=== PATIENT | male | born 1940 | race Caucasian/White ===

== ENCOUNTER 2022-10-15 09:44 | Emergency (ER) | payer OTHER ==
[~2022-10-15] VITALS: Ht 165.1 cm; Wt 63.5 kg
[2022-10-15 09:45] VITALS: BP_SYST 117
--- NOTE | 2022-10-15 09:45 | NUR ---
Patient triaged and placed in waiting room. VSS and patient appears in no acute distress at this time. Accompanied by SON, awaiting available bed, and MD notified of need for MSE.
--- NOTE | 2022-10-15 09:50 | NUR ---
PT BIB SON FROM HOME C/O DIARRHEA, ABD PAIN AND NAUSEA X 10 DAYS. WORSE AFTER EATING. CAME BACK FROM [place] LAST NIGHT WHERE HE HAS BEEN STAYING RECENTLY. DENIES VOMITTING. PT IS AMBULATORY, AAOX4, VSS
--- NOTE | 2022-10-15 10:40 | NUR ---
ER DR. ORNELAS EXAMINING PT
[2022-10-15 11:09] LABS: BASOPHILS % (AUTO) 0.6 % (0.0-2.0); EOSINOPHILS # (AUTO) 0.1 K/uL (0.0-0.4); EOSINOPHILS % (AUTO) 1.3 % (0.0-4.0); HEMATOCRIT 33.4 % (36-54); HEMOGLOBIN 10.6 g/dL (14.0-18.0); LYMPHOCYTES # (AUTO) 1.6 K/uL (1.0-5.5); LYMPHOCYTES % (AUTO) 19.5 % (20.5-51.5); MEAN CORPUSCULAR HEMOGLOBIN 24 pg (27-31); MEAN CORPUSCULAR HGB CONC 32 % (32-36); MEAN CORPUSCULAR VOLUME 76 fL (79.0-98.0); MONOCYTES # (AUTO) 0.6 K/uL (0.0-1.0); MONOCYTES % (AUTO) 7.3 % (1.7-9.3); NEUTROPHILS # (AUTO) 5.7 K/uL (1.8-7.7); NEUTROPHILS % (AUTO) 71.3 % (40.0-70.0); PLATELET COUNT (AUTO) 339 K/uL (130-430); RED BLOOD CELL COUNT(AUTO) 4.39 MIL/uL (4.2-6.2); RED CELL DISTRIBUTION WIDTH 19.1 % (9.0-15.0)
[2022-10-15 11:21] LABS: ANION GAP 8 (5-15); CALCIUM 8.9 mg/dL (8.4-11.0); CHLORIDE 104 mmol/L (98-107); CREATININE 2.49 mg/dL (0.55-1.30); GLUCOSE 108 mg/dL (70-99); UREA NITROGEN, BLOOD 41 mg/dL (8-21)
[2022-10-15 11:31] LABS: ALANINE AMINOTRANSFERASE 28 U/L (12-78); ALBUMIN 3.3 g/dL (3.4-4.8); ASPARTATE AMINOTRANSFERASE 17 U/L (10-37); LIPASE 406 U/L (73-393); TOTAL BILIRUBIN 0.8 mg/dL (0.0-1.0)
[2022-10-15] MEDS ORDERED: LOPE2CAP PO (13:46)
[2022-10-15] MEDS ORDERED: CIPR500T5 PO (13:46)
[2022-10-15 14:00] VITALS: BP_SYST 117
--- NOTE | 2022-10-15 14:00 | NUR ---
Patient given written and verbal discharge instructions and verbalizes understanding. ER MD discussed with patient the results and treatment provided. Patient in stable condition. ID arm band removed. Rx of CIPRO AND IMODIUM given. Patient educated on pain management and to follow up with PMD. Pain Scale 0/10. Opportunity for questions provided and answered. Medication side effect fact sheet provided.
== END 2022-10-15 14:00 | disposition home or self-care (01) ==
LOC: SED 09:44
DX: R19.7 Diarrhea, unspecified (principal); R10.32 Left lower quadrant pain; I10 Essential (primary) hypertension; Z79.899 Other long term (current) drug therapy
CPT/HCPCS: 36415; 80053; 83690; 85025; 99283

== ENCOUNTER 2023-05-01 07:07 | Emergency (ER) | payer OTHER ==
[~2023-05-01] VITALS: Ht 160 cm; Wt 68.0 kg
[~2023-05-01 07:07] MED LIST: ALBU8.5H5 INH; ALLO100T PO; ATOR40TA68 PO; CIPR500T5 PO; CLOP75TA32 PO; HYD10 PO; HYDR12.55 PO; LOPE2CAP PO; METO25TA3 PO; OLME40TA70 PO; SODI10PO PO
[2023-05-01 07:23] VITALS: BP_SYST 139; PULSE 89; RESP 18; TEMP 98; O2SAT 97
[2023-05-01] MEDS ORDERED: NACL 0.9% 1,000 ML IV ONE (07:45)
[2023-05-01 08:10] LABS: BILIRUBIN,URINE NEGATIVE (NEGATIVE); BLOOD, URINE 1+ (NEGATIVE); COLOR,URINE YELLOW (YELLOW); GLUCOSE,URINE NEGATIVE (NEGATIVE); NITRITE, URINE NEGATIVE (NEGATIVE); PH,URINE 6.5 (5.0-8.0); PROTEIN URINE NEGATIVE (NEGATIVE); UROBILINOGEN,URINE 0.2 (0.2-1.0)
[2023-05-01 08:11] LABS: CLARITY/URINE SLIGHTLY HAZY (CLEAR); KETONES,URINE NEGATIVE (NEGATIVE); LEUKOCYTE ESTERASE ,URINE NEGATIVE (NEGATIVE)
[2023-05-01 08:13] LABS: BASOPHILS % (AUTO) 0.4 % (0.0-2.0); EOSINOPHILS % (AUTO) 0.2 % (0.0-4.0); HEMATOCRIT 25.2 % (36-54); HEMOGLOBIN 7.8 g/dL (14.0-18.0); LYMPHOCYTES # (AUTO) 1.1 K/uL (1.0-5.5); LYMPHOCYTES % (AUTO) 9.6 % (20.5-51.5); MEAN CORPUSCULAR HEMOGLOBIN 24 pg (27-31); MEAN CORPUSCULAR HGB CONC 31 % (32-36); MEAN CORPUSCULAR VOLUME 76 fL (79.0-98.0); MONOCYTES # (AUTO) 1.2 K/uL (0.0-1.0); MONOCYTES % (AUTO) 10.4 % (1.7-9.3); NEUTROPHILS # (AUTO) 9.2 K/uL (1.8-7.7); NEUTROPHILS % (AUTO) 79.4 % (40.0-70.0); PLATELET COUNT (AUTO) 510 K/uL (130-430); RED BLOOD CELL COUNT(AUTO) 3.33 MIL/uL (4.2-6.2); RED CELL DISTRIBUTION WIDTH 18.6 % (9.0-15.0); WHITE BLOOD COUNT (AUTO) 11.6 K/uL (4.8-10.8)
[2023-05-01 08:33] LABS: ANION GAP 10 (5-15); CALCIUM 8.6 mg/dL (8.4-11.0); CARBON DIOXIDE 27 mmol/L (23-29); CHLORIDE 101 mmol/L (98-107); CREATININE 1.33 mg/dL (0.55-1.30); GLUCOSE 90 mg/dL (74-106); POTASSIUM 4.4 mmol/L (3.5-5.1); SODIUM SERUM 138 mmol/L (136-145); UREA NITROGEN, BLOOD 33 mg/dL (8-21)
[2023-05-01 08:34] LABS: BARBITURATE, URINE NEGATIVE (NEG <=200); BENZODIAZEPINE, URINE NEGATIVE (NEG <=150); CANNABINOID, URINE NEGATIVE (NEG <=50); COCAINE, URINE NEGATIVE (NEG <=150); METHAMPHETAMINES SCREEN,URINE NEGATIVE (NEG <=500); OPIATE, URINE NEGATIVE (NEG <=100); PHENCYCLIDINE SCREEN,URINE NEGATIVE (NEG <=25); UR TRICYCLIC ANTIDEPRESSANTS NEGATIVE (NEG <=300); URINE AMPHETAMINE NEGATIVE (NEG <=500); URINE METHADONE NEGATIVE (NEG <=200); URINE OXYCODONE SCREEN NEGATIVE (NEG <=100); URINE PROPOXYPHENE SCREEN NEGATIVE (NEG <=300)
[2023-05-01 08:35] LABS: BACTERIA,URINE RARE /HPF (None Seen); RBC,URINE 0-3 /HPF (0-3); WBC,URINE NONE SEEN /HPF (0-3)
[2023-05-01 08:40] LABS: ALANINE AMINOTRANSFERASE 24 U/L (12-78); ALBUMIN 2.6 g/dL (3.4-4.8); ASPARTATE AMINOTRANSFERASE 27 U/L (10-37); TOTAL PROTEIN, SERUM 6.6 g/dL (6.4-8.3)
[2023-05-01 10:57] VITALS: BP_SYST 130; PULSE 89; RESP 18; TEMP 98; O2SAT 97
== END 2023-05-01 11:00 | disposition home or self-care (01) ==
LOC: SED 07:07
DX: R33.9 Retention of urine, unspecified (principal); N28.9 Disorder of kidney and ureter, unspecified; R10.30 Lower abdominal pain, unspecified; J44.9 Chronic obstructive pulmonary disease, unspecified; I10 Essential (primary) hypertension; Z85.9 Personal history of malignant neoplasm, unspecified; Z79.899 Other long term (current) drug therapy
CPT/HCPCS: 36415; 71045; 80053; 80307; 81000; 85025; 93005; 99285

== ENCOUNTER 2023-09-12 16:55 | Inpatient (IN) | payer OTHER ==
[~2023-09-12] VITALS: Ht 165.1 cm; Wt 53.5 kg
[~2023-09-12 16:55] MED LIST changes: +PHEN-726 PO
[2023-09-12 17:03] VITALS: BP_SYST 137; PULSE 91; RESP 17; TEMP 99.1; O2SAT 81
[2023-09-12] MEDS ORDERED: ALBUTEROL SULFATE 0.083% 2.5 MG/3 ML VIAL.NEB INH ONE (17:30)
[2023-09-12] MEDS ORDERED: IPRATROPIUM BROM 0.5 MG/2.5 ML VIAL.NEB (ATROVENT) INH ONE (17:30)
[2023-09-12 17:52] LABS: EOSINOPHILS # (AUTO) 0.2 K/uL (0.0-0.4); HEMOGLOBIN 11.2 g/dL (14.0-18.0); LYMPHOCYTES # (AUTO) 1.3 K/uL (1.0-5.5); MEAN CORPUSCULAR HGB CONC 33 % (32-36); MONOCYTES # (AUTO) 0.8 K/uL (0.0-1.0)
[2023-09-12 17:56] VITALS: O2SAT 90
[2023-09-12 18:01] LABS: BASOPHILS % (AUTO) 0.6 % (0.0-2.0); EOSINOPHILS % (AUTO) 2.5 % (0.0-4.0); HEMATOCRIT 33.7 % (36-54); LYMPHOCYTES % (AUTO) 17.1 % (20.5-51.5); MEAN CORPUSCULAR HEMOGLOBIN 26 pg (27-31); MEAN CORPUSCULAR VOLUME 78 fL (79.0-98.0); MONOCYTES % (AUTO) 9.9 % (1.7-9.3); NEUTROPHILS # (AUTO) 5.3 K/uL (1.8-7.7); NEUTROPHILS % (AUTO) 69.9 % (40.0-70.0); PLATELET COUNT (AUTO) 345 K/uL (130-430); RED BLOOD CELL COUNT(AUTO) 4.31 MIL/uL (4.2-6.2); RED CELL DISTRIBUTION WIDTH 20.4 % (9.0-15.0); WHITE BLOOD COUNT (AUTO) 7.6 K/uL (4.8-10.8)
[2023-09-12] MEDS ORDERED: iohexoL 350 mgI/mL, 100 ML INFUS..BTL IV ONE (18:05)
[2023-09-12 18:13] LABS: ANION GAP 7 (5-15); CALCIUM 8.4 mg/dL (8.4-11.0); CARBON DIOXIDE 27 mmol/L (23-29); CHLORIDE 104 mmol/L (98-107); CREATININE 1.16 mg/dL (0.55-1.30); GLUCOSE 99 mg/dL (74-106); POTASSIUM 4.8 mmol/L (3.5-5.1); SODIUM SERUM 138 mmol/L (136-145); UREA NITROGEN, BLOOD 25 mg/dL (8-21)
[2023-09-12] MEDS ORDERED: FINA-37 PO (21:10)
[2023-09-12] MEDS ORDERED: MIRT-147 PO (21:10)
[2023-09-12] MEDS ORDERED: TAMS-11 PO (21:10)
[2023-09-13] MEDS: AZITHROMYCIN 500 MG in NS 250 ML IV SCH (11:00)
[2023-09-13] MEDS ORDERED: METHYLPREDNISOLONE SOD SUCC 40 MG/ML VIAL IVP ONE (11:15)
[2023-09-13] MEDS: cefTRIAXone 1 GM in D5W 50 ML IV SCH (12:22)
[2023-09-13] MEDS ORDERED: ALBUTEROL MDI INHALATION 8 GM INH INH PRN (12:45)
[2023-09-13] MEDS ORDERED: TAMSULOSIN HCL 0.4 MG CAP PO ONE (13:30)
[2023-09-13] MEDS ORDERED: FINASTERIDE 5 MG TABLET (PROSCAR) PO ONE (13:30)
[2023-09-13] MEDS ORDERED: ALLOPURINOL 100 MG TABLET (ZYLOPRIM) PO ONE (13:30)
[2023-09-13] MEDS ORDERED: ALBUTEROL SULFATE 0.083% 2.5 MG/3 ML VIAL.NEB INH PRN (14:00)
[2023-09-13 14:12] VITALS: PULSE 70; O2SAT 96
[2023-09-13] MEDS ORDERED: METHYLPREDNISOLONE SOD SUCC 40 MG/ML VIAL ONE (23:11)
[2023-09-13] MEDS: METHYLPREDNISOLONE SOD SUCC 40 MG/ML VIAL IVP SCH (23:12)
[2023-09-13] MEDS ORDERED: ATORVASTATIN 20 MG TABLET ONE (23:15)
[2023-09-13] MEDS: ATORVASTATIN 20 MG TABLET PO SCH (23:17)
[2023-09-13] MEDS ORDERED: MIRTAZAPINE 15 MG TABLET ONE (23:37)
[2023-09-13] MEDS: MIRTAZAPINE 15 MG TABLET PO SCH (23:39)
[2023-09-14] VITALS (7 sets, daily range): BP systolic 124–148; PULSE 79–98; RESP 12–17; TEMP 97.6–98.1; O2SAT 92–93
[2023-09-14 08:03] LABS: BASOPHILS % (AUTO) 0.1 % (0.0-2.0); HEMOGLOBIN 11.9 g/dL (14.0-18.0); LYMPHOCYTES % (AUTO) 10.3 % (20.5-51.5); MEAN CORPUSCULAR HEMOGLOBIN 26 pg (27-31); MEAN CORPUSCULAR HGB CONC 33 % (32-36); MEAN CORPUSCULAR VOLUME 79 fL (79.0-98.0); MONOCYTES # (AUTO) 0.2 K/uL (0.0-1.0); MONOCYTES % (AUTO) 1.9 % (1.7-9.3); NEUTROPHILS # (AUTO) 8.2 K/uL (1.8-7.7); NEUTROPHILS % (AUTO) 87.7 % (40.0-70.0); PLATELET COUNT (AUTO) 338 K/uL (130-430); RED BLOOD CELL COUNT(AUTO) 4.55 MIL/uL (4.2-6.2); RED CELL DISTRIBUTION WIDTH 19.9 % (9.0-15.0); WHITE BLOOD COUNT (AUTO) 9.3 K/uL (4.8-10.8)
[2023-09-14 08:10] LABS: ANION GAP 8 (5-15); CALCIUM 8.6 mg/dL (8.4-11.0); CARBON DIOXIDE 26 mmol/L (23-29); CHLORIDE 105 mmol/L (98-107); CREATININE 1.13 mg/dL (0.55-1.30); GLUCOSE 158 mg/dL (74-106); POTASSIUM 5.2 mmol/L (3.5-5.1); SODIUM SERUM 139 mmol/L (136-145); UREA NITROGEN, BLOOD 27 mg/dL (8-21)
[2023-09-14] MEDS ORDERED: NON-FORMULARY MEDICATION (Hydrochlorothiazide 1 TAB) PO SCH (09:00)
[2023-09-14] MEDS: ALLOPURINOL 100 MG TABLET (ZYLOPRIM) PO SCH (09:07)
[2023-09-14] MEDS: TAMSULOSIN HCL 0.4 MG CAP PO SCH (09:07)
[2023-09-14] MEDS: FINASTERIDE 5 MG TABLET (PROSCAR) PO SCH (09:07)
[2023-09-14] MEDS: METHYLPREDNISOLONE SOD SUCC 40 MG/ML VIAL IVP SCH ×2 (09:31→21:00)
[2023-09-14] MEDS: cefTRIAXone 1 GM in D5W 50 ML IV SCH (09:32)
[2023-09-14] MEDS: AZITHROMYCIN 500 MG in NS 250 ML IV SCH (09:32)
[2023-09-14] MEDS ORDERED: HYDROCHLOROTHIAZIDE 12.5 MG CAPSULE (HCTZ) PO ONE (09:45)
[2023-09-14] MEDS ORDERED: SODIUM POLYSTYRENE SULFONATE 15 GM/60 ML UDBTL PO ONE (11:30)
[2023-09-14] MEDS: ATORVASTATIN 20 MG TABLET PO SCH (21:00)
[2023-09-14] MEDS: MIRTAZAPINE 15 MG TABLET PO SCH (21:01)
[2023-09-15 06:26] LABS: ANION GAP 6 (5-15); CALCIUM 7.9 mg/dL (8.4-11.0); CARBON DIOXIDE 26 mmol/L (23-29); CHLORIDE 104 mmol/L (98-107); CREATININE 1.11 mg/dL (0.55-1.30); GLUCOSE 149 mg/dL (74-106); POTASSIUM 4.3 mmol/L (3.5-5.1); SODIUM SERUM 136 mmol/L (136-145); UREA NITROGEN, BLOOD 30 mg/dL (8-21)
[2023-09-15 06:34] LABS: BASOPHILS % (AUTO) 0.1 % (0.0-2.0); HEMATOCRIT 30.8 % (36-54); HEMOGLOBIN 10.3 g/dL (14.0-18.0); LYMPHOCYTES # (AUTO) 1.1 K/uL (1.0-5.5); LYMPHOCYTES % (AUTO) 7.9 % (20.5-51.5); MEAN CORPUSCULAR HEMOGLOBIN 26 pg (27-31); MEAN CORPUSCULAR HGB CONC 33 % (32-36); MEAN CORPUSCULAR VOLUME 79 fL (79.0-98.0); MONOCYTES # (AUTO) 0.6 K/uL (0.0-1.0); MONOCYTES % (AUTO) 3.9 % (1.7-9.3); NEUTROPHILS # (AUTO) 12.6 K/uL (1.8-7.7); NEUTROPHILS % (AUTO) 88.1 % (40.0-70.0); PLATELET COUNT (AUTO) 333 K/uL (130-430); RED BLOOD CELL COUNT(AUTO) 3.92 MIL/uL (4.2-6.2); RED CELL DISTRIBUTION WIDTH 20.1 % (9.0-15.0); WHITE BLOOD COUNT (AUTO) 14.3 K/uL (4.8-10.8)
[2023-09-15 08:00] VITALS: BP_SYST 135; PULSE 96; RESP 19; TEMP 96.9; O2SAT 94
[2023-09-15] MEDS: HYDROCHLOROTHIAZIDE 12.5 MG CAPSULE (HCTZ) PO SCH (09:26)
[2023-09-15] MEDS: FINASTERIDE 5 MG TABLET (PROSCAR) PO SCH (09:26)
[2023-09-15] MEDS: ALLOPURINOL 100 MG TABLET (ZYLOPRIM) PO SCH (09:26)
[2023-09-15] MEDS: TAMSULOSIN HCL 0.4 MG CAP PO SCH (09:26)
[2023-09-15] MEDS: METHYLPREDNISOLONE SOD SUCC 40 MG/ML VIAL IVP SCH ×2 (11:48→21:22)
[2023-09-15] MEDS: cefTRIAXone 1 GM in D5W 50 ML IV SCH (11:54)
[2023-09-15] MEDS: AZITHROMYCIN 500 MG in NS 250 ML IV SCH (11:54)
[2023-09-15 12:03] VITALS: BP_SYST 127; PULSE 87; RESP 18; TEMP 97.2; O2SAT 95
[2023-09-15 16:00] VITALS: BP_SYST 132; PULSE 85; RESP 18; TEMP 98.2; O2SAT 97
[2023-09-15 20:00] VITALS: BP_SYST 130; PULSE 93; RESP 18; TEMP 98.3; O2SAT 97; O2SAT 98
[2023-09-15] MEDS: ATORVASTATIN 20 MG TABLET PO SCH (21:22)
[2023-09-15] MEDS: MIRTAZAPINE 15 MG TABLET PO SCH (21:22)
[2023-09-16] VITALS (8 sets, daily range): BP systolic 126–145; PULSE 57–91; RESP 16–20; TEMP 97.3–98; O2SAT 93–98
[2023-09-16 05:04] LABS: ERYTHROCYTE SEDIMENTATION RATE 67 MM/HR (0-15)
[2023-09-16 05:14] LABS: HEMATOCRIT 30.8 % (36-54); HEMOGLOBIN 10.3 g/dL (14.0-18.0); LYMPHOCYTES # (AUTO) 0.9 K/uL (1.0-5.5); MEAN CORPUSCULAR HEMOGLOBIN 26 pg (27-31); MEAN CORPUSCULAR HGB CONC 33 % (32-36); MEAN CORPUSCULAR VOLUME 79 fL (79.0-98.0); MONOCYTES # (AUTO) 0.2 K/uL (0.0-1.0); MONOCYTES % (AUTO) 1.7 % (1.7-9.3); NEUTROPHILS # (AUTO) 8.8 K/uL (1.8-7.7); NEUTROPHILS % (AUTO) 89.3 % (40.0-70.0); PLATELET COUNT (AUTO) 311 K/uL (130-430); RED BLOOD CELL COUNT(AUTO) 3.93 MIL/uL (4.2-6.2); RED CELL DISTRIBUTION WIDTH 19.5 % (9.0-15.0); WHITE BLOOD COUNT (AUTO) 9.9 K/uL (4.8-10.8)
[2023-09-16 05:47] LABS: ALANINE AMINOTRANSFERASE 52 U/L (12-78); ALBUMIN 2.3 g/dL (3.4-4.8); ANION GAP 10 (5-15); ASPARTATE AMINOTRANSFERASE 51 U/L (10-37); CALCIUM 8.5 mg/dL (8.4-11.0); CARBON DIOXIDE 24 mmol/L (23-29); CHLORIDE 104 mmol/L (98-107); CREATININE 1.24 mg/dL (0.55-1.30); GLUCOSE 215 mg/dL (74-106); POTASSIUM 4.2 mmol/L (3.5-5.1); SODIUM SERUM 138 mmol/L (136-145); TOTAL BILIRUBIN 0.3 mg/dL (0.0-1.0); TOTAL PROTEIN, SERUM 6.6 g/dL (6.4-8.3); UREA NITROGEN, BLOOD 35 mg/dL (8-21)
[2023-09-16] MEDS: TAMSULOSIN HCL 0.4 MG CAP PO SCH (08:56)
[2023-09-16] MEDS: FINASTERIDE 5 MG TABLET (PROSCAR) PO SCH (08:56)
[2023-09-16] MEDS: ALLOPURINOL 100 MG TABLET (ZYLOPRIM) PO SCH (08:57)
[2023-09-16] MEDS: METHYLPREDNISOLONE SOD SUCC 40 MG/ML VIAL IVP SCH ×2 (08:57→21:44)
[2023-09-16] MEDS: HYDROCHLOROTHIAZIDE 12.5 MG CAPSULE (HCTZ) PO SCH (08:57)
[2023-09-16] MEDS: cefTRIAXone 1 GM in D5W 50 ML IV SCH (08:58)
[2023-09-16] MEDS: AZITHROMYCIN 500 MG in NS 250 ML IV SCH (09:44)
[2023-09-16] MEDS: ATORVASTATIN 20 MG TABLET PO SCH (21:43)
[2023-09-16] MEDS: MIRTAZAPINE 15 MG TABLET PO SCH (21:43)
[2023-09-17 00:40] VITALS: BP_SYST 138; PULSE 88; RESP 16; TEMP 98; O2SAT 98
[2023-09-17 08:00] VITALS: BP_SYST 144; PULSE 70; RESP 17; TEMP 98.3; O2SAT 95
[2023-09-17] MEDS: cefTRIAXone 1 GM in D5W 50 ML IV SCH (08:39)
[2023-09-17] MEDS: METHYLPREDNISOLONE SOD SUCC 40 MG/ML VIAL IVP SCH ×2 (08:39→21:28)
[2023-09-17] MEDS: FINASTERIDE 5 MG TABLET (PROSCAR) PO SCH (08:40)
[2023-09-17] MEDS: HYDROCHLOROTHIAZIDE 12.5 MG CAPSULE (HCTZ) PO SCH (08:40)
[2023-09-17] MEDS: TAMSULOSIN HCL 0.4 MG CAP PO SCH (08:40)
[2023-09-17] MEDS: ALLOPURINOL 100 MG TABLET (ZYLOPRIM) PO SCH (08:40)
[2023-09-17] MEDS: AZITHROMYCIN 500 MG in NS 250 ML IV SCH (09:43)
[2023-09-17 11:03] VITALS: BP_SYST 135; PULSE 70; RESP 16; TEMP 97.6; O2SAT 99
[2023-09-17 17:14] VITALS: BP_SYST 137; PULSE 70; RESP 16; TEMP 97.6; O2SAT 99
[2023-09-17 20:45] VITALS: O2SAT 94
[2023-09-17 21:00] VITALS: BP_SYST 146; PULSE 75; RESP 20; O2SAT 95
[2023-09-17] MEDS: ATORVASTATIN 20 MG TABLET PO SCH (21:26)
[2023-09-17] MEDS: MIRTAZAPINE 15 MG TABLET PO SCH (21:27)
[2023-09-18 01:11] VITALS: BP_SYST 130; PULSE 66; RESP 17; TEMP 96.8; O2SAT 98
[2023-09-18 04:55] LABS: BASOPHILS % (AUTO) 0.1 % (0.0-2.0); EOSINOPHILS % (AUTO) 0.1 % (0.0-4.0); HEMATOCRIT 33.4 % (36-54); HEMOGLOBIN 11.1 g/dL (14.0-18.0); LYMPHOCYTES % (AUTO) 10.1 % (20.5-51.5); MEAN CORPUSCULAR HEMOGLOBIN 26 pg (27-31); MEAN CORPUSCULAR HGB CONC 33 % (32-36); MEAN CORPUSCULAR VOLUME 79 fL (79.0-98.0); MONOCYTES # (AUTO) 0.2 K/uL (0.0-1.0); MONOCYTES % (AUTO) 2.3 % (1.7-9.3); NEUTROPHILS # (AUTO) 9.1 K/uL (1.8-7.7); NEUTROPHILS % (AUTO) 87.4 % (40.0-70.0); PLATELET COUNT (AUTO) 313 K/uL (130-430); RED BLOOD CELL COUNT(AUTO) 4.26 MIL/uL (4.2-6.2); RED CELL DISTRIBUTION WIDTH 19.4 % (9.0-15.0)
[2023-09-18 05:06] LABS: ALANINE AMINOTRANSFERASE 74 U/L (12-78); ALBUMIN 2.4 g/dL (3.4-4.8); ANION GAP 7 (5-15); ASPARTATE AMINOTRANSFERASE 63 U/L (10-37); CALCIUM 8.7 mg/dL (8.4-11.0); CARBON DIOXIDE 30 mmol/L (23-29); CHLORIDE 102 mmol/L (98-107); CREATININE 1.34 mg/dL (0.55-1.30); GLUCOSE 301 mg/dL (74-106); POTASSIUM 5.6 mmol/L (3.5-5.1); SODIUM SERUM 139 mmol/L (136-145); TOTAL BILIRUBIN 0.3 mg/dL (0.0-1.0); TOTAL PROTEIN, SERUM 6.7 g/dL (6.4-8.3); UREA NITROGEN, BLOOD 35 mg/dL (8-21)
[2023-09-18 08:00] VITALS: BP_SYST 148; PULSE 72; RESP 17; TEMP 98.7; O2SAT 98
[2023-09-18 08:23] LABS: WHITE BLOOD COUNT (AUTO) 10.4 K/uL (4.8-10.8)
[2023-09-18] MEDS: HYDROCHLOROTHIAZIDE 12.5 MG CAPSULE (HCTZ) PO SCH (09:56)
[2023-09-18] MEDS: METHYLPREDNISOLONE SOD SUCC 40 MG/ML VIAL IVP SCH (09:56)
[2023-09-18] MEDS: FINASTERIDE 5 MG TABLET (PROSCAR) PO SCH (09:57)
[2023-09-18] MEDS: ALLOPURINOL 100 MG TABLET (ZYLOPRIM) PO SCH (09:57)
[2023-09-18] MEDS: TAMSULOSIN HCL 0.4 MG CAP PO SCH (09:57)
[2023-09-18] MEDS ORDERED: NACL 0.9% 1,000 ML IV ONE (10:00)
[2023-09-18] MEDS: cefTRIAXone 1 GM in D5W 50 ML IV SCH (10:03)
[2023-09-18] MEDS: AZITHROMYCIN 500 MG in NS 250 ML IV SCH (10:54)
[2023-09-18 12:00] VITALS: BP_SYST 149; PULSE 68; RESP 18; TEMP 98; O2SAT 100
[2023-09-18 16:00] VITALS: BP_SYST 141; PULSE 91; RESP 18; TEMP 97.7; O2SAT 97
[2023-09-18 17:35] LABS: ANION GAP 10 (5-15); CALCIUM 7.4 mg/dL (8.4-11.0); CARBON DIOXIDE 24 mmol/L (23-29); CHLORIDE 99 mmol/L (98-107); CREATININE 1.15 mg/dL (0.55-1.30); GLUCOSE 276 mg/dL (74-106); POTASSIUM 4.3 mmol/L (3.5-5.1); SODIUM SERUM 133 mmol/L (136-145); UREA NITROGEN, BLOOD 35 mg/dL (8-21)
[2023-09-18] MEDS ORDERED: METH-776 PO (20:18)
[2023-09-18 20:30] VITALS: BP_SYST 136; PULSE 79; RESP 20; TEMP 98.3; O2SAT 95
[2023-09-18] MEDS: ATORVASTATIN 20 MG TABLET PO SCH (21:23)
[2023-09-18] MEDS: MIRTAZAPINE 15 MG TABLET PO SCH (21:23)
[2023-09-19] VITALS: BP_SYST 131; PULSE 85; RESP 20; TEMP 97.3; O2SAT 95
[2023-09-19 05:46] LABS: BASOPHILS % (AUTO) 0.1 % (0.0-2.0); EOSINOPHILS % (AUTO) 0.1 % (0.0-4.0); HEMATOCRIT 31.1 % (36-54); HEMOGLOBIN 10.2 g/dL (14.0-18.0); LYMPHOCYTES # (AUTO) 1.3 K/uL (1.0-5.5); LYMPHOCYTES % (AUTO) 11.4 % (20.5-51.5); MEAN CORPUSCULAR HEMOGLOBIN 26 pg (27-31); MEAN CORPUSCULAR HGB CONC 33 % (32-36); MEAN CORPUSCULAR VOLUME 78 fL (79.0-98.0); MONOCYTES # (AUTO) 0.9 K/uL (0.0-1.0); MONOCYTES % (AUTO) 8.5 % (1.7-9.3); NEUTROPHILS # (AUTO) 8.8 K/uL (1.8-7.7); NEUTROPHILS % (AUTO) 79.9 % (40.0-70.0); PLATELET COUNT (AUTO) 287 K/uL (130-430); RED BLOOD CELL COUNT(AUTO) 3.99 MIL/uL (4.2-6.2)
[2023-09-19 06:15] LABS: ALANINE AMINOTRANSFERASE 68 U/L (12-78); ALBUMIN 2.3 g/dL (3.4-4.8); ANION GAP 9 (5-15); ASPARTATE AMINOTRANSFERASE 48 U/L (10-37); CARBON DIOXIDE 26 mmol/L (23-29); CHLORIDE 102 mmol/L (98-107); GLUCOSE 293 mg/dL (74-106); POTASSIUM 4.4 mmol/L (3.5-5.1); SODIUM SERUM 137 mmol/L (136-145); TOTAL BILIRUBIN 0.3 mg/dL (0.0-1.0); TOTAL PROTEIN, SERUM 6.1 g/dL (6.4-8.3); UREA NITROGEN, BLOOD 31 mg/dL (8-21)
[2023-09-19 08:00] VITALS: BP_SYST 170; PULSE 69; RESP 18; TEMP 98.1; O2SAT 95
[2023-09-19] MEDS ORDERED: METHYLPREDNISOLONE SOD SUCC 40 MG/ML VIAL IVP SCH (09:00)
[2023-09-19] MEDS ORDERED: ENOXAPARIN SODIUM 30 MG/0.3 ML SYRINGE SUBCUT SCH (09:00)
[2023-09-19] MEDS: ALLOPURINOL 100 MG TABLET (ZYLOPRIM) PO SCH (09:20)
[2023-09-19] MEDS: TAMSULOSIN HCL 0.4 MG CAP PO SCH (09:20)
[2023-09-19] MEDS: FINASTERIDE 5 MG TABLET (PROSCAR) PO SCH (09:20)
[2023-09-19] MEDS: cefTRIAXone 1 GM in D5W 50 ML IV SCH (09:21)
[2023-09-19] MEDS: HYDROCHLOROTHIAZIDE 12.5 MG CAPSULE (HCTZ) PO SCH (09:21)
[2023-09-19 10:04] VITALS: BP_SYST 170; PULSE 69; O2SAT 95
[2023-09-19 12:55] VITALS: BP_SYST 157; PULSE 85; RESP 20; TEMP 97.9; O2SAT 95
[2023-09-19 13:51] VITALS: BP_SYST 157; PULSE 85; RESP 20; TEMP 97.9; O2SAT 95
[2023-09-19 16:00] VITALS: BP_SYST 157; PULSE 81; RESP 20; TEMP 98; O2SAT 100
== END 2023-09-19 16:26 | disposition home or self-care (01) | DRG 193 ==
LOC: SED 16:55 → STU 22:30 → SMU 09-17 23:25
PROVIDERS: ADMIT Preventive Medicine Preventive Medicine/Occupational Environmental Medicine; ATTEND Family Medicine
DX: J18.9 Pneumonia, unspecified organism (principal); J96.01 Acute respiratory failure with hypoxia; J44.1 Chronic obstructive pulmonary disease with (acute) exacerbation; N17.9 Acute kidney failure, unspecified; J44.0 Chronic obstructive pulmonary disease with (acute) lower respiratory infection; E78.5 Hyperlipidemia, unspecified; E83.51 Hypocalcemia; E87.5 Hyperkalemia; I25.10 Atherosclerotic heart disease of native coronary artery without angina pectoris; I10 Essential (primary) hypertension; M10.9 Gout, unspecified; D64.9 Anemia, unspecified; R79.89 Other specified abnormal findings of blood chemistry; N40.0 Benign prostatic hyperplasia without lower urinary tract symptoms; Z85.118 Personal history of other malignant neoplasm of bronchus and lung; Z95.5 Presence of coronary angioplasty implant and graft; Z92.21 Personal history of antineoplastic chemotherapy
CPT/HCPCS: 36415; 71045; 71275; 76376; 80048; 80053; 82948; 83880; 84484; 85025; 85651; 87040; 93005; 94640; 94664; 94760; 97110-GP; 97116-GP; 97530-GP; 99291; G0378; J0456; J0696; J1030; J1650; J7050; J7060; Q9967

== ENCOUNTER 2024-01-16 15:11 | Inpatient (IN) | payer OTHER ==
[~2024-01-16] VITALS: Ht 165.1 cm; Wt 49.9 kg
[~2024-01-16 15:11] MED LIST changes: -CIPR500T5 PO; -CLOP75TA32 PO; +FINA-37 PO; -HYD10 PO; -LOPE2CAP PO; +METH-776 PO; -METO25TA3 PO; +MIRT-147 PO; -OLME40TA70 PO; -PHEN-726 PO; -SODI10PO PO; +TAMS-11 PO
[2024-01-16 15:30] VITALS: BP_SYST 134; PULSE 78; RESP 22; TEMP 97.4; O2SAT 88
[2024-01-16] MEDS ORDERED: CLOP75TA32 PO (16:23)
[2024-01-16 16:43] LABS: ALANINE AMINOTRANSFERASE 17 U/L (12-78); ALBUMIN 1.7 g/dL (3.4-4.8); ANION GAP 7 (5-15); ASPARTATE AMINOTRANSFERASE 22 U/L (10-37); BASOPHILS % (AUTO) 0.3 % (0.0-2.0); BILIRUBIN,DIRECT 0.3 mg/dL (0.0-0.3); CALCIUM 8.7 mg/dL (8.4-11.0); CARBON DIOXIDE 29 mmol/L (23-29); CHLORIDE 99 mmol/L (98-107); CREATININE 1.47 mg/dL (0.55-1.30); EOSINOPHILS # (AUTO) 0.1 K/uL (0.0-0.4); EOSINOPHILS % (AUTO) 1.2 % (0.0-4.0); GLUCOSE 108 mg/dL (74-106); LYMPHOCYTES # (AUTO) 0.9 K/uL (1.0-5.5); LYMPHOCYTES % (AUTO) 9.5 % (20.5-51.5); MEAN CORPUSCULAR HEMOGLOBIN 23 pg (27-31); MEAN CORPUSCULAR HGB CONC 32 % (32-36); MEAN CORPUSCULAR VOLUME 71 fL (79.0-98.0); MONOCYTES # (AUTO) 0.6 K/uL (0.0-1.0); MONOCYTES % (AUTO) 7.2 % (1.7-9.3); NEUTROPHILS # (AUTO) 7.3 K/uL (1.8-7.7); NEUTROPHILS % (AUTO) 81.8 % (40.0-70.0); PLATELET COUNT (AUTO) 594 K/uL (130-430); POTASSIUM 5.1 mmol/L (3.5-5.1); RED BLOOD CELL COUNT(AUTO) 2.78 MIL/uL (4.2-6.2); RED CELL DISTRIBUTION WIDTH 19.5 % (9.0-15.0); SODIUM SERUM 135 mmol/L (136-145); TOTAL BILIRUBIN 0.6 mg/dL (0.0-1.0); TOTAL PROTEIN, SERUM 7.6 g/dL (6.4-8.3); UREA NITROGEN, BLOOD 33 mg/dL (8-21)
[2024-01-16 16:49] LABS: HEMATOCRIT 19.6 % (36-54); HEMOGLOBIN 6.3 g/dL (14.0-18.0)
[2024-01-16] MEDS ORDERED: cefTRIAXone 1 GM VIAL ONE (18:57)
[2024-01-16] MEDS: cefTRIAXone 1 GM in D5W 50 ML IV ONE (19:03)
[2024-01-16 20:02] LABS: TOTAL IRON BIND. CAPACITY 260 ug/dL (250-450)
[2024-01-16 20:32] LABS: ANISOCYTOSIS 2+; HYPOCHROMASIA 2+; OVALOCYTES FEW
[2024-01-16 20:47] VITALS: BP_SYST 117; PULSE 120; RESP 20; TEMP 97.9
[2024-01-16 20:50] VITALS: BP_SYST 134; PULSE 102; O2SAT 98
[2024-01-16 21:00] VITALS: O2SAT 98
[2024-01-16] MEDS: IPRATROPIUM/ALBUTEROL SULFATE 3 ML AMPUL.NEB (DUONEB) INH ONE (21:00)
[2024-01-16 22:00] VITALS: O2SAT 98
[2024-01-16] MEDS: PANTOPRAZOLE SODIUM 40 MG/VIAL (PROTONIX) IVP SCH (23:00)
[2024-01-16] MEDS: FUROSEMIDE 20 MG/2 ML VIAL IVP SCH (23:00)
[2024-01-16] MEDS: AZITHROMYCIN 250 MG in NS 250 ML IV ONE (23:02)
[2024-01-16] MEDS: IPRATROPIUM/ALBUTEROL SULFATE 3 ML AMPUL.NEB (DUONEB) INH SCH (23:21)
[2024-01-16 23:24] VITALS: O2SAT 99
[2024-01-17] VITALS (12 sets, daily range): BP systolic 111–129; PULSE 64–99; RESP 17–20; TEMP 97.2–98.7; O2SAT 95–100
[2024-01-17] MEDS: PIPERACILLIN/TAZO 3.375 GM in D5W 50 ML IV SCH (00:15)
[2024-01-17] MEDS: TEMAZEPAM 7.5 MG CAPSULE PO PRN (00:57)
[2024-01-17] MEDS: ACETAMINOPHEN 325 MG TABLET PO PRN (00:58)
[2024-01-17 10:36] LABS: BASOPHILS % (AUTO) 0.4 % (0.0-2.0); EOSINOPHILS # (AUTO) 0.1 K/uL (0.0-0.4); EOSINOPHILS % (AUTO) 1.4 % (0.0-4.0); HEMATOCRIT 32.5 % (36-54); HEMOGLOBIN 10.9 g/dL (14.0-18.0); LYMPHOCYTES # (AUTO) 0.8 K/uL (1.0-5.5); LYMPHOCYTES % (AUTO) 11.1 % (20.5-51.5); MEAN CORPUSCULAR HEMOGLOBIN 26 pg (27-31); MEAN CORPUSCULAR HGB CONC 34 % (32-36); MEAN CORPUSCULAR VOLUME 77 fL (79.0-98.0); MONOCYTES # (AUTO) 0.4 K/uL (0.0-1.0); NEUTROPHILS # (AUTO) 5.9 K/uL (1.8-7.7); NEUTROPHILS % (AUTO) 81.1 % (40.0-70.0); PLATELET COUNT (AUTO) 513 K/uL (130-430); RED BLOOD CELL COUNT(AUTO) 4.21 MIL/uL (4.2-6.2); RED CELL DISTRIBUTION WIDTH 20.9 % (9.0-15.0); WHITE BLOOD COUNT (AUTO) 7.3 K/uL (4.8-10.8)
[2024-01-17 10:50] LABS: ANION GAP 2 (5-15); CALCIUM 8.2 mg/dL (8.4-11.0); CARBON DIOXIDE 28 mmol/L (23-29); CHLORIDE 96 mmol/L (98-107); CREATININE 1.66 mg/dL (0.55-1.30); GLUCOSE 266 mg/dL (74-106); POTASSIUM 4.4 mmol/L (3.5-5.1); SODIUM SERUM 126 mmol/L (136-145); UREA NITROGEN, BLOOD 30 mg/dL (8-21)
[2024-01-17] MEDS: METHYLPREDNISOLONE SOD SUCC 40 MG/ML VIAL IVP ONE (11:38)
[2024-01-17] MEDS: AZITHROMYCIN 250 MG in NS 250 ML IV SCH (21:36)
[2024-01-17] MEDS: METHYLPREDNISOLONE SOD SUCC 40 MG/ML VIAL IVP SCH (21:38)
[2024-01-18] VITALS (10 sets, daily range): BP systolic 115–130; PULSE 76–91; RESP 16–18; TEMP 97.5–98.3; O2SAT 76–99
[2024-01-18 05:24] LABS: BASOPHILS % (AUTO) 0.1 % (0.0-2.0); HEMATOCRIT 30.5 % (36-54); LYMPHOCYTES # (AUTO) 0.3 K/uL (1.0-5.5); LYMPHOCYTES % (AUTO) 4.5 % (20.5-51.5); MEAN CORPUSCULAR HEMOGLOBIN 25 pg (27-31); MEAN CORPUSCULAR HGB CONC 33 % (32-36); MEAN CORPUSCULAR VOLUME 78 fL (79.0-98.0); MONOCYTES # (AUTO) 0.1 K/uL (0.0-1.0); MONOCYTES % (AUTO) 1.3 % (1.7-9.3); NEUTROPHILS # (AUTO) 6.7 K/uL (1.8-7.7); NEUTROPHILS % (AUTO) 94.1 % (40.0-70.0); PLATELET COUNT (AUTO) 477 K/uL (130-430); RED BLOOD CELL COUNT(AUTO) 3.92 MIL/uL (4.2-6.2); RED CELL DISTRIBUTION WIDTH 20.5 % (9.0-15.0); RETICULOCYTE COUNT 1.9 % (0.5-1.5); WHITE BLOOD COUNT (AUTO) 7.1 K/uL (4.8-10.8)
[2024-01-18 05:58] LABS: ANION GAP 14 (5-15); CALCIUM 8.2 mg/dL (8.4-11.0); CARBON DIOXIDE 24 mmol/L (23-29); CHLORIDE 94 mmol/L (98-107); CREATININE 1.86 mg/dL (0.55-1.30); POTASSIUM 4.2 mmol/L (3.5-5.1); SODIUM SERUM 132 mmol/L (136-145); UREA NITROGEN, BLOOD 33 mg/dL (8-21)
[2024-01-18 06:00] LABS: TOTAL IRON BIND. CAPACITY 256 ug/dL (250-450)
[2024-01-18 06:04] LABS: GLUCOSE 536 mg/dL (74-106)
[2024-01-18] MEDS: NACL 0.9% 1,000 ML IV SCH (13:15)
[2024-01-18] MEDS: SOD FERRIC GLUC COMPLEX/SUC 125 MG in NS 100 ML IV SCH (18:52)
[2024-01-18] MEDS: INSULIN LISPRO SLIDING SCALE 100 UNITS/ML, 3 ML VIAL (humaLOG) SUBCUT PRN (23:56)
[2024-01-19] VITALS (10 sets, daily range): BP systolic 127–137; PULSE 63–77; RESP 16–18; TEMP 97.5–98.7; O2SAT 95–100
[2024-01-19 07:05] LABS: BILIRUBIN,URINE NEGATIVE (NEGATIVE); BLOOD, URINE NEGATIVE (NEGATIVE); CLARITY/URINE CLEAR (CLEAR); COLOR,URINE YELLOW (YELLOW); GLUCOSE,URINE 3+ (NEGATIVE); KETONES,URINE NEGATIVE (NEGATIVE); LEUKOCYTE ESTERASE ,URINE NEGATIVE (NEGATIVE); NITRITE, URINE NEGATIVE (NEGATIVE); PH,URINE 7.5 (5.0-8.0); PROTEIN URINE NEGATIVE (NEGATIVE); UROBILINOGEN,URINE 0.2 (0.2-1.0)
[2024-01-19 08:14] LABS: HEMATOCRIT 29.4 % (36-54); HEMOGLOBIN 9.8 g/dL (14.0-18.0); LYMPHOCYTES # (AUTO) 0.6 K/uL (1.0-5.5); LYMPHOCYTES % (AUTO) 4.7 % (20.5-51.5); MEAN CORPUSCULAR HEMOGLOBIN 25 pg (27-31); MEAN CORPUSCULAR HGB CONC 33 % (32-36); MEAN CORPUSCULAR VOLUME 77 fL (79.0-98.0); MONOCYTES # (AUTO) 0.5 K/uL (0.0-1.0); MONOCYTES % (AUTO) 4.2 % (1.7-9.3); NEUTROPHILS # (AUTO) 11.3 K/uL (1.8-7.7); NEUTROPHILS % (AUTO) 91.1 % (40.0-70.0); PLATELET COUNT (AUTO) 534 K/uL (130-430); RED BLOOD CELL COUNT(AUTO) 3.84 MIL/uL (4.2-6.2); RED CELL DISTRIBUTION WIDTH 20.8 % (9.0-15.0)
[2024-01-19 08:18] LABS: RBC,URINE 0-3 /HPF (0-3); WBC,URINE 0-3 /HPF (0-3)
[2024-01-19 08:19] LABS: BACTERIA,URINE RARE /HPF (None Seen)
[2024-01-19 08:32] LABS: ANION GAP 12 (5-15); CALCIUM 8.6 mg/dL (8.4-11.0); CARBON DIOXIDE 24 mmol/L (23-29); CHLORIDE 101 mmol/L (98-107); GLUCOSE 189 mg/dL (74-106); POTASSIUM 4.2 mmol/L (3.5-5.1); SODIUM SERUM 137 mmol/L (136-145); THYROID STIMULATING HORMONE 0.85 uIu/mL (0.34-4.82); UREA NITROGEN, BLOOD 31 mg/dL (8-21)
[2024-01-19 09:16] LABS: ERYTHROCYTE SEDIMENTATION RATE 99 MM/HR (0-15); WHITE BLOOD COUNT (AUTO) 12.4 K/uL (4.8-10.8)
[2024-01-19] MEDS: FOLIC ACID 1 MG TABLET PO SCH (09:37)
[2024-01-19] MEDS: INSULIN GLARGINE 100 UNITS/ML, 10 ML VIAL SUBCUT SCH (09:39)
[2024-01-19] MEDS ORDERED: guaiFENesin/DEXTROMETHORPHAN 10 ML UDC PO PRN (15:45)
[2024-01-19] MEDS: BISACODYL 5 MG TABLET.DR (DULCOLAX) PO ONE (17:23)
[2024-01-19] MEDS: GOLYTELY / COLYTE SOLUTION 4 LITERS PO ONE (18:22)
[2024-01-20] VITALS (10 sets, daily range): BP systolic 124–133; PULSE 69–82; RESP 17–18; TEMP 96.6–97.8; O2SAT 95–100
[2024-01-20 08:30] LABS: HEMATOCRIT 30.6 % (36-54); LYMPHOCYTES # (AUTO) 0.7 K/uL (1.0-5.5); LYMPHOCYTES % (AUTO) 7.4 % (20.5-51.5); MEAN CORPUSCULAR HEMOGLOBIN 25 pg (27-31); MEAN CORPUSCULAR HGB CONC 33 % (32-36); MEAN CORPUSCULAR VOLUME 78 fL (79.0-98.0); MONOCYTES # (AUTO) 0.6 K/uL (0.0-1.0); MONOCYTES % (AUTO) 5.8 % (1.7-9.3); NEUTROPHILS # (AUTO) 8.3 K/uL (1.8-7.7); NEUTROPHILS % (AUTO) 86.8 % (40.0-70.0); PLATELET COUNT (AUTO) 541 K/uL (130-430); RED BLOOD CELL COUNT(AUTO) 3.94 MIL/uL (4.2-6.2); RED CELL DISTRIBUTION WIDTH 21.5 % (9.0-15.0); WHITE BLOOD COUNT (AUTO) 9.5 K/uL (4.8-10.8)
[2024-01-20 09:10] LABS: ERYTHROCYTE SEDIMENTATION RATE 104 MM/HR (0-15)
[2024-01-20 09:27] LABS: ALANINE AMINOTRANSFERASE 20 U/L (12-78); ALBUMIN 1.7 g/dL (3.4-4.8); ANION GAP 15 (5-15); ASPARTATE AMINOTRANSFERASE 35 U/L (10-37); CALCIUM 8.5 mg/dL (8.4-11.0); CARBON DIOXIDE 24 mmol/L (23-29); CHLORIDE 105 mmol/L (98-107); GLUCOSE 107 mg/dL (74-106); PHOSPHORUS 2.9 mg/dL (2.7-4.5); POTASSIUM 4.4 mmol/L (3.5-5.1); SODIUM SERUM 144 mmol/L (136-145); TOTAL BILIRUBIN 0.6 mg/dL (0.0-1.0); UREA NITROGEN, BLOOD 22 mg/dL (8-21)
[2024-01-20] MEDS: fentaNYL CITRATE/PF 100 MCG/2 ML AMP ONE (14:30)
[2024-01-20] MEDS: MIDAZOLAM HCL 5 MG/5 ML VIAL ONE (14:30)
[2024-01-20] MEDS: AZITHROMYCIN 500 MG/VIAL (ZITHROMAX) IV ONE (21:30)
[2024-01-21] VITALS (11 sets, daily range): BP systolic 115–141; PULSE 64–82; RESP 17–18; TEMP 96.7–98.8; O2SAT 94–98
[2024-01-21 05:07] LABS: BASOPHILS % (AUTO) 0.1 % (0.0-2.0); HEMATOCRIT 31.1 % (36-54); HEMOGLOBIN 10.2 g/dL (14.0-18.0); LYMPHOCYTES # (AUTO) 0.5 K/uL (1.0-5.5); LYMPHOCYTES % (AUTO) 6.4 % (20.5-51.5); MEAN CORPUSCULAR HEMOGLOBIN 25 pg (27-31); MEAN CORPUSCULAR HGB CONC 33 % (32-36); MEAN CORPUSCULAR VOLUME 78 fL (79.0-98.0); MONOCYTES # (AUTO) 0.3 K/uL (0.0-1.0); MONOCYTES % (AUTO) 4.5 % (1.7-9.3); NEUTROPHILS # (AUTO) 6.8 K/uL (1.8-7.7); PLATELET COUNT (AUTO) 529 K/uL (130-430); RED BLOOD CELL COUNT(AUTO) 4.01 MIL/uL (4.2-6.2); RED CELL DISTRIBUTION WIDTH 21.7 % (9.0-15.0); WHITE BLOOD COUNT (AUTO) 7.6 K/uL (4.8-10.8)
[2024-01-21 05:20] LABS: ANION GAP 12 (5-15); CALCIUM 8.3 mg/dL (8.4-11.0); CARBON DIOXIDE 24 mmol/L (23-29); CHLORIDE 102 mmol/L (98-107); CREATININE 1.45 mg/dL (0.55-1.30); GLUCOSE 166 mg/dL (74-106); PHOSPHORUS 3.3 mg/dL (2.7-4.5); POTASSIUM 3.5 mmol/L (3.5-5.1); SODIUM SERUM 138 mmol/L (136-145); UREA NITROGEN, BLOOD 19 mg/dL (8-21)
[2024-01-21 08:00] LABS: BILIRUBIN,URINE NEGATIVE (NEGATIVE); BLOOD, URINE NEGATIVE (NEGATIVE); CLARITY/URINE CLEAR (CLEAR); COLOR,URINE YELLOW (YELLOW); GLUCOSE,URINE NEGATIVE (NEGATIVE); KETONES,URINE NEGATIVE (NEGATIVE); LEUKOCYTE ESTERASE ,URINE NEGATIVE (NEGATIVE); NITRITE, URINE NEGATIVE (NEGATIVE); PH,URINE 6.5 (5.0-8.0); PROTEIN URINE NEGATIVE (NEGATIVE); UROBILINOGEN,URINE 0.2 (0.2-1.0)
[2024-01-21 08:56] LABS: ERYTHROCYTE SEDIMENTATION RATE 103 MM/HR (0-15)
[2024-01-21] MEDS ORDERED: DEXTROSE 50% JECT 50 ML DISP.SYRIN IVP PRN (14:00)
[2024-01-21] MEDS ORDERED: D5W 1,000 ML IV PRN (14:00)
[2024-01-21] MEDS ORDERED: GLUCOSE (DEXTROSE) ORAL GEL -Adults PO PRN (14:00)
[2024-01-21] MEDS: INSULIN LISPRO SLIDING SCALE 100 UNITS/ML, 3 ML VIAL (humaLOG) SUBCUT PRN (17:45)
[2024-01-22] VITALS (12 sets, daily range): BP systolic 121–145; PULSE 64–81; RESP 16–18; TEMP 96.2–98.4; O2SAT 92–98
[2024-01-22 04:56] LABS: ERYTHROCYTE SEDIMENTATION RATE 85 MM/HR (0-15)
[2024-01-22 05:03] LABS: HEMATOCRIT 29.6 % (36-54); HEMOGLOBIN 9.8 g/dL (14.0-18.0); LYMPHOCYTES # (AUTO) 0.5 K/uL (1.0-5.5); LYMPHOCYTES % (AUTO) 5.6 % (20.5-51.5); MEAN CORPUSCULAR HEMOGLOBIN 25 pg (27-31); MEAN CORPUSCULAR HGB CONC 33 % (32-36); MEAN CORPUSCULAR VOLUME 77 fL (79.0-98.0); MONOCYTES # (AUTO) 0.4 K/uL (0.0-1.0); MONOCYTES % (AUTO) 4.9 % (1.7-9.3); NEUTROPHILS # (AUTO) 7.4 K/uL (1.8-7.7); NEUTROPHILS % (AUTO) 89.5 % (40.0-70.0); PLATELET COUNT (AUTO) 487 K/uL (130-430); RED BLOOD CELL COUNT(AUTO) 3.85 MIL/uL (4.2-6.2); RED CELL DISTRIBUTION WIDTH 21.6 % (9.0-15.0); WHITE BLOOD COUNT (AUTO) 8.2 K/uL (4.8-10.8)
[2024-01-22 05:44] LABS: ALANINE AMINOTRANSFERASE 40 U/L (12-78); ALBUMIN 1.7 g/dL (3.4-4.8); ANION GAP 8 (5-15); ASPARTATE AMINOTRANSFERASE 34 U/L (10-37); CALCIUM 8.3 mg/dL (8.4-11.0); CARBON DIOXIDE 27 mmol/L (23-29); CHLORIDE 102 mmol/L (98-107); CREATININE 1.22 mg/dL (0.55-1.30); GLUCOSE 198 mg/dL (74-106); POTASSIUM 3.9 mmol/L (3.5-5.1); SODIUM SERUM 137 mmol/L (136-145); TOTAL BILIRUBIN 0.7 mg/dL (0.0-1.0); TOTAL PROTEIN, SERUM 6.5 g/dL (6.4-8.3); UREA NITROGEN, BLOOD 23 mg/dL (8-21)
[2024-01-22] MEDS: CALCIUM GLUC 2 GM/100ML-NACL 100 ML IV ONE (12:14)
[2024-01-23] VITALS (11 sets, daily range): BP systolic 118–152; PULSE 60–81; RESP 14–18; TEMP 80–97.8; O2SAT 96–98
[2024-01-23 04:51] LABS: ERYTHROCYTE SEDIMENTATION RATE 94 MM/HR (0-15)
[2024-01-23 05:12] LABS: BASOPHILS % (AUTO) 0.1 % (0.0-2.0); HEMATOCRIT 30.5 % (36-54); HEMOGLOBIN 10.1 g/dL (14.0-18.0); LYMPHOCYTES # (AUTO) 0.3 K/uL (1.0-5.5); LYMPHOCYTES % (AUTO) 3.4 % (20.5-51.5); MEAN CORPUSCULAR HEMOGLOBIN 26 pg (27-31); MEAN CORPUSCULAR HGB CONC 33 % (32-36); MEAN CORPUSCULAR VOLUME 78 fL (79.0-98.0); MONOCYTES # (AUTO) 0.3 K/uL (0.0-1.0); NEUTROPHILS # (AUTO) 9.1 K/uL (1.8-7.7); NEUTROPHILS % (AUTO) 93.5 % (40.0-70.0); PLATELET COUNT (AUTO) 486 K/uL (130-430); RED BLOOD CELL COUNT(AUTO) 3.92 MIL/uL (4.2-6.2); WHITE BLOOD COUNT (AUTO) 9.7 K/uL (4.8-10.8)
[2024-01-23 05:21] LABS: ANION GAP 11 (5-15); CALCIUM 8.5 mg/dL (8.4-11.0); CARBON DIOXIDE 24 mmol/L (23-29); CHLORIDE 101 mmol/L (98-107); CREATININE 1.42 mg/dL (0.55-1.30); GLUCOSE 251 mg/dL (74-106); POTASSIUM 4.2 mmol/L (3.5-5.1); SODIUM SERUM 136 mmol/L (136-145); UREA NITROGEN, BLOOD 28 mg/dL (8-21)
[2024-01-23 07:26] LABS: ANISOCYTOSIS 2+; HELMET CELLS FEW; HYPOCHROMASIA SLIGHT; OVALOCYTES FEW; TARGET CELLS FEW
[2024-01-24] VITALS (9 sets, daily range): BP systolic 117–154; PULSE 65–89; RESP 16–20; TEMP 96.7–98.2; O2SAT 96–98
[2024-01-24 06:12] LABS: HEMATOCRIT 31.7 % (36-54); HEMOGLOBIN 10.7 g/dL (14.0-18.0); LYMPHOCYTES # (AUTO) 0.2 K/uL (1.0-5.5); LYMPHOCYTES % (AUTO) 2.2 % (20.5-51.5); MEAN CORPUSCULAR HEMOGLOBIN 27 pg (27-31); MEAN CORPUSCULAR HGB CONC 34 % (32-36); MEAN CORPUSCULAR VOLUME 79 fL (79.0-98.0); MONOCYTES # (AUTO) 0.4 K/uL (0.0-1.0); MONOCYTES % (AUTO) 3.8 % (1.7-9.3); NEUTROPHILS # (AUTO) 9.8 K/uL (1.8-7.7); PLATELET COUNT (AUTO) 503 K/uL (130-430); RED BLOOD CELL COUNT(AUTO) 4.01 MIL/uL (4.2-6.2); RED CELL DISTRIBUTION WIDTH 22.6 % (9.0-15.0); WHITE BLOOD COUNT (AUTO) 10.5 K/uL (4.8-10.8)
[2024-01-24 06:37] LABS: ERYTHROCYTE SEDIMENTATION RATE 106 MM/HR (0-15)
[2024-01-24 06:38] LABS: ALANINE AMINOTRANSFERASE 39 U/L (12-78); ALBUMIN 1.9 g/dL (3.4-4.8); ANION GAP 10 (5-15); ASPARTATE AMINOTRANSFERASE 30 U/L (10-37); CALCIUM 8.1 mg/dL (8.4-11.0); CARBON DIOXIDE 26 mmol/L (23-29); CHLORIDE 102 mmol/L (98-107); CREATININE 1.27 mg/dL (0.55-1.30); GLUCOSE 131 mg/dL (74-106); PHOSPHORUS 3.3 mg/dL (2.7-4.5); SODIUM SERUM 138 mmol/L (136-145); TOTAL BILIRUBIN 0.8 mg/dL (0.0-1.0); UREA NITROGEN, BLOOD 37 mg/dL (8-21)
[2024-01-24] MEDS ORDERED: FOLI-43 PO (10:50)
[2024-01-24] MEDS: CALCIUM GLUC 2 GM/100ML-NACL 100 ML IV ONE (14:19)
== END 2024-01-24 16:30 | disposition home health service (06) | DRG 871 ==
LOC: SED 15:11 → STU 17:29
PROVIDERS: ADMIT Specialist; ATTEND Specialist
PROC: 30233N1 Transfusion of Nonautologous Red Blood Cells into Peripheral Vein, Percutaneous Approach (ICD-10-PCS; 2024-01-16)
PROC: 0DBL8ZZ Excision of Transverse Colon, Via Natural or Artificial Opening Endoscopic (ICD-10-PCS; principal; 2024-01-20 12:00)
DX: A41.9 Sepsis, unspecified organism (principal); J18.9 Pneumonia, unspecified organism; J96.21 Acute and chronic respiratory failure with hypoxia; D62 Acute posthemorrhagic anemia; E87.1 Hypo-osmolality and hyponatremia; J44.0 Chronic obstructive pulmonary disease with (acute) lower respiratory infection; N17.9 Acute kidney failure, unspecified; E46 Unspecified protein-calorie malnutrition; Z68.1 Body mass index [BMI] 19.9 or less, adult; K63.5 Polyp of colon; D50.9 Iron deficiency anemia, unspecified; D75.839 Thrombocytosis, unspecified; E11.65 Type 2 diabetes mellitus with hyperglycemia; E83.51 Hypocalcemia; E88.09 Other disorders of plasma-protein metabolism, not elsewhere classified; K64.8 Other hemorrhoids; I12.9 Hypertensive chronic kidney disease with stage 1 through stage 4 chronic kidney disease, or unspecified chronic kidney disease; N18.9 Chronic kidney disease, unspecified; I25.10 Atherosclerotic heart disease of native coronary artery without angina pectoris; Z95.5 Presence of coronary angioplasty implant and graft; Z87.891 Personal history of nicotine dependence; Z83.3 Family history of diabetes mellitus; T38.0X5D Adverse effect of glucocorticoids and synthetic analogues, subsequent encounter; Z85.118 Personal history of other malignant neoplasm of bronchus and lung
CPT/HCPCS: 36415; 45385; 70492; 71045; 71250-TC; 72131; 80048; 80053; 80076; 81000; 81001; 81003; 81015; 82272; 82570; 82948; 83037; 83540; 83550; 83735; 83880; 84100; 84302; 84436; 84443; 84484; 85025; 85044; 85651; 86886; 86900; 86901; 86920; 87040; 88305; 93005; 93306; 93970; 94640; 94664; 94760; 96365; 97110-GP; 97116-GP; 97530-GP; 99285; C9113; G0378; J0456; J0696; J1030; J1815; J1940; J2250; J2543; J2916; J3010; J7050; J7060; P9021; Q9967

== ENCOUNTER 2024-03-12 19:05 | Emergency (ER) | payer OTHER ==
[~2024-03-12] VITALS: Ht 162.6 cm; Wt 54.4 kg
[~2024-03-12 19:05] MED LIST changes: -ALBU8.5H5 INH; +CLOP75TA32 PO; +DIF100 PO; +FOLI-43 PO; -HYDR12.55 PO; -METH-776 PO; -MIRT-147 PO; +PRED20TA PO; +PRO40 PO
[2024-03-12 19:11] VITALS: BP_SYST 106; PULSE 85; RESP 17; TEMP 97.3; O2SAT 98
[2024-03-12 19:53] LABS: MEAN CORPUSCULAR HEMOGLOBIN 28 pg (27-31); MEAN CORPUSCULAR HGB CONC 34 % (32-36); MEAN CORPUSCULAR VOLUME 83 fL (79.0-98.0); PLATELET COUNT (AUTO) 351 K/uL (130-430); RED BLOOD CELL COUNT(AUTO) 2.38 MIL/uL (4.2-6.2); RED CELL DISTRIBUTION WIDTH 23.1 % (9.0-15.0); WHITE BLOOD COUNT (AUTO) 10.4 K/uL (4.8-10.8)
[2024-03-12 20:03] LABS: HEMATOCRIT 19.8 % (36-54); HEMOGLOBIN 6.7 g/dL (14.0-18.0)
[2024-03-12] MEDS: NACL 0.9% 1,000 ML IV ONE (20:05)
[2024-03-12 20:06] LABS: ALANINE AMINOTRANSFERASE 22 U/L (12-78); ALBUMIN 1.6 g/dL (3.4-4.8); ANION GAP 5 (5-15); ASPARTATE AMINOTRANSFERASE 24 U/L (10-37); BILIRUBIN,DIRECT 0.3 mg/dL (0.0-0.3); CALCIUM 8.2 mg/dL (8.4-11.0); CARBON DIOXIDE 36 mmol/L (23-29); CHLORIDE 99 mmol/L (98-107); CREATININE 1.33 mg/dL (0.55-1.30); GLUCOSE 153 mg/dL (74-106); LIPASE 86 U/L (16-77); SODIUM SERUM 140 mmol/L (136-145); TOTAL BILIRUBIN 0.6 mg/dL (0.0-1.0); TOTAL PROTEIN, SERUM 5.7 g/dL (6.4-8.3); UREA NITROGEN, BLOOD 26 mg/dL (8-21)
[2024-03-12 20:07] LABS: POTASSIUM 2.8 mmol/L (3.5-5.1)
[2024-03-12 20:12] LABS: BAND % (MANUAL) 1 % (0-6); BASOPHILS % (MANUAL) 0 % (0-2); EOSINOPHILS % (MANUAL) 0 % (0-7); LYMPHOCYTES % (MANUAL) 2 % (20-46); MONOCYTES % (MANUAL) 2 % (0-11); PLATELET ESTIMATE ADEQUATE (ADEQUATE)
[2024-03-12 20:13] LABS: ANISOCYTOSIS 2+
[2024-03-12] MEDS: ONDANSETRON HCL 4 MG/2 ML VIAL IVP ONE (20:52)
[2024-03-12] MEDS: POTASSIUM CHLORIDE 20 MEQ/PKT PACKET PO ONE (20:52)
[2024-03-12] MEDS: KCL 20 mEq in 100 mL (PREMIX) 100 ML IV ONE (20:53)
[2024-03-12] MEDS: MAGNESIUM OXIDE 400 MG TABLET PO ONE (21:59)
[2024-03-12] MEDS ORDERED: GUAI5SYR PO (22:08)
[2024-03-12] MEDS ORDERED: ONDA-8 TL (22:08)
[2024-03-12] MEDS: guaiFENesin/DEXTROMETHORPHAN 10 ML UDC PO ONE (23:37)
[2024-03-13 00:33] VITALS: BP_SYST 131; PULSE 75; RESP 20; TEMP 97.7; O2SAT 98
== END 2024-03-13 00:33 | disposition home or self-care (01) ==
LOC: SED 19:05
DX: R53.1 Weakness (principal); D64.9 Anemia, unspecified; E87.6 Hypokalemia; R11.0 Nausea; R53.83 Other fatigue; I10 Essential (primary) hypertension; J44.9 Chronic obstructive pulmonary disease, unspecified; Z98.61 Coronary angioplasty status; Z85.118 Personal history of other malignant neoplasm of bronchus and lung; Z79.899 Other long term (current) drug therapy; Z79.2 Long term (current) use of antibiotics; Z98.890 Other specified postprocedural states
CPT/HCPCS: 99285; 36430; 96365; 96361; 96366; 96375; 85027; 80076; 80048; 83690; 83735; 85007; 86886; 86900; 86901; 86920; 36415; P9021; J2405; J3480; J7030